=== PATIENT | female | born 1985 | race Caucasian/White ===

== ENCOUNTER 2018-04-08 22:10 | Inpatient (IN) | payer OTHER ==
[~2018-04-08] VITALS: Ht 172.7 cm; Wt 85.0 kg
[~2018-04-08 22:10] MED LIST: [UNRECOGNIZED DRUG - OTHER]
[2018-04-08 22:30] VITALS: BP 144/89; PULSE 60; TEMP 98.2
[2018-04-08 22:38] VITALS: BP 144/89; PULSE 60; TEMP 98.2
[2018-04-08] MEDS ORDERED: PRENATAL MVI (23:48)
[2018-04-08 23:51] LABS: BASO # 0.1 (0.0-0.2); BASO % 0.4 % (0.0-2.0); EOS # 0.1 (0.0-0.7); EOS % 0.5 % (0-4.0); GRAN # 9.3 (1.4-6.5); GRAN % 71.4 % (42.2-75.2); HEMOGLOBIN 11.6 g/dl (12.5-16.0); LYMPH # 2.5 (1.2-3.4); LYMPH % 18.9 % (20.0-51.0); MEAN CELL VOLUME 86 fl (80.0-100.0); MEAN CORPUSCULAR HEMOGLOBIN 30 pg (27.0-31.0); MEAN CORPUSCULAR HGB CONC 35 g/dl (33.0-37.0); MEAN PLATELET VOLUME 9.9 fl (7.4-10.4); MONO # 1.1 (0.1-0.6); MONO % 8.4 % (1.7-9.3); PLATELET COUNT 335 K/mm3 (130-400); RED BLOOD COUNT 3.86 M/mm3 (4.10-5.30)
[2018-04-08 23:52] LABS: HEMATOCRIT 33.3 % (37.0-47.0)
[2018-04-09] VITALS (21 sets, daily range): BP systolic 72–156; BP diastolic 37–82; PULSE 54–109; TEMP 97.9–98.3
[2018-04-09 07:59] LABS: MEAN CELL VOLUME 87 fl (80.0-100.0); MEAN CORPUSCULAR HGB CONC 34 g/dl (33.0-37.0); PLATELET COUNT 292 K/mm3 (130-400); RED BLOOD COUNT 2.96 M/mm3 (4.10-5.30); REDCELL DISTRIBUTION WIDTH-CV 12.7 % (11.5-14.5)
[2018-04-09 08:05] LABS: HEMATOCRIT 25.7 % (37.0-47.0); HEMOGLOBIN 8.8 g/dl (12.5-16.0); MEAN CORPUSCULAR HEMOGLOBIN 30 pg (27.0-31.0)
[2018-04-09 09:29] LABS: BAND 19 % (0-10); LYMPHOCYTE 12 % (20.0-51.0); NEUTROPHILS 62 % (42.0-75.2)
[2018-04-09 09:30] LABS: PLATELET ESTIMATE NORMAL (NORMAL)
[2018-04-10 01:45] VITALS: BP 106/61; PULSE 65; TEMP 97.9
[2018-04-10 07:19] VITALS: BP 114/68; PULSE 70; TEMP 98.1
[2018-04-10] MEDS ORDERED: IBU600 MG PO (11:30)
[2018-04-10 16:00] VITALS: BP 118/78; PULSE 70; TEMP 98.3
[2018-04-10 20:07] VITALS: BP 124/73; PULSE 69; TEMP 98
[2018-04-11 08:30] VITALS: BP 124/69; PULSE 63; TEMP 97.7
== END 2018-04-11 10:15 | disposition home or self-care (01) | DRG 775 ==
LOC: LDRO 22:10 → OB 22:56 → LDR 22:56 → OB 04-09 04:15
PROVIDERS: Obstetrics & Gynecology
PROC: 10E0XZZ Delivery of Products of Conception, External Approach (ICD-10-PCS; principal; 2018-04-09)
PROC: 0HQ9XZZ Repair Perineum Skin, External Approach (ICD-10-PCS; 2018-04-09)
PROC: 0UQMXZZ Repair Vulva, External Approach (ICD-10-PCS; 2018-04-09)
DX: O70.0 First degree perineal laceration during delivery (principal); O36.0930 Maternal care for other rhesus isoimmunization, third trimester, not applicable or unspecified; Z3A.40 40 weeks gestation of pregnancy; Z37.0 Single live birth; Z22.330 Carrier of Group B streptococcus
CPT/HCPCS: J2540; J2590; J2795; J7120

== ENCOUNTER → 2024-06-14 | Outpatient (CLI) | payer BC ==
[~2024-06-14] MED LIST changes: +IBU600 MG PO; +PRENATAL MVI
== END ==
LOC: COL.RAD 12:46
DX: R07.9 Chest pain, unspecified (principal)